=== PATIENT | female | born 1990 | race Caucasian/White ===

== ENCOUNTER 2019-12-18 06:45 | Day surgery (SDC) | payer OTHER ==
[~2019-12-18 06:45] MED LIST: Lactated Ringers 1,000 ML IV SCH
[2019-12-18] MEDS ORDERED: Sugammadex Sodium 200 MG/2 ML VIAL ONE (07:10)
[2019-12-18] MEDS ORDERED: Rocuronium 100 MG/10 ML Syringe ONE (07:13)
[2019-12-18] MEDS ORDERED: Propofol 200 MG/20 ML SDV ONE (07:13)
[2019-12-18] MEDS ORDERED: Ondansetron 4 MG/2 ML SDV ONE (07:13)
[2019-12-18] MEDS ORDERED: Midazolam 1 MG/ML 2 ML SDV ONE (07:13)
[2019-12-18] MEDS ORDERED: Ketorolac 30 MG/ML SDV ONE (07:13)
[2019-12-18] MEDS ORDERED: Lidocaine 2% 5 ML SDV ONE (07:13)
[2019-12-18] MEDS ORDERED: fentaNYL 250 MCG/5 ML SDV ONE (07:13)
[2019-12-18] MEDS ORDERED: Glycopyrrolate 0.2 MG/ML SDV ONE (07:13)
--- NOTE | 2019-12-18 07:35 | PCM.PREANE ---
Preanesthetic Assessment - Anesthesia/Transfusion/Family Hx Anesthesia History: Prior Anesthesia Without Reaction Other Type of Anesthesia Reaction Comment: woke up during wisdon teeth removal Family History of Anesthesia Reaction: No Transfusion History: No Prior Transfusion(s) - Review of Systems General: No Symptoms Pulmonary: No Symptoms Cardiovascular: No Symptoms Gastrointestinal: No Symptoms Neurological: No Symptoms Other: Reports: None - Physical Assessment NPO Status Date: 12/17/19 Vital Signs: Last Vital Signs Temp 208.0 F H 12/18/19 07:00 Pulse 78 12/18/19 07:00 Resp 15 12/18/19 07:00 BP 140/73 12/18/19 07:00 Pulse Ox 100 12/18/19 07:00 Height: 5 ft 8 in Weight: 106.594 kg ASA Class: 2 Dentition: Reports: Normal Dentition Lungs: Clear to Auscultation, Normal Respiratory Effort Cardiovascular: Regular Rate, Regular Rhythm - Lab Values: Laboratory Last Values WBC 7.58 K/uL (4.0-11.0) 12/18/19 07:14 RBC 4.52 M/uL (4.30-5.90) 12/18/19 07:14 Hgb 11.7 g/dL (12.0-16.0) L 12/18/19 07:14 Hct 36.5 % (36.0-46.0) 12/18/19 07:14 MCV 80.8 fL (80.0-98.0) 12/18/19 07:14 MCH 25.9 pg (27.0-32.0) L 12/18/19 07:14 MCHC 32.1 g/dL (31.0-37.0) 12/18/19 07:14 RDW Std Deviation 45.5 fl (28.0-62.0) 12/18/19 07:14 RDW Coeff of Ravi 16 % (11.0-15.0) H 12/18/19 07:14 Plt Count 369 K/uL (150-400) 12/18/19 07:14 MPV 9.90 fL (7.40-12.00) 12/18/19 07:14 Nucleated RBC % 0.0 /100WBC 12/18/19 07:14 Nucleated RBCs # 0 K/uL 12/18/19 07:14 - Allergies Allergies/Adverse Reactions: Allergies Allergy/AdvReac Type Severity Reaction Status Date / Time Penicillins Allergy Swelling Verified 12/12/19 12:24 - Blood Blood Available: No - Anesthesia Plan Pre-Op Medication Ordered: Antacids - Acknowledgements Anesthesia Type Planned: General Anesthesia Pt an Appropriate Candidate for the Planned Anesthesia: Yes Alternatives and Risks of Anesthesia Discussed w Pt/Guardian: Yes Pt/Guardian Understands and Agrees with Anesthesia Plan: Yes Additional Comments: PMH: htn, endometriosis PLAN: get PreAnesthesia Questionnaire Cardiovascular History: Reports: High Cholesterol, Hypertension Gastrointestinal History: Reports: Other (See Below) Other Gastrointestinal History: occasional heartburn Genitourinary History: Reports: UTI, Recurrent Other Genitourinary History: takes daily antibiotic for bladder infections COBBLER UPPER History: Reports: Endometriosis, Fibroids Musculoskeletal History: Reports: Fracture Other Musculoskeletal History: hx of fx fingers left hand Neurological History: Reports: Migraines, Other (See Below) Other Neuro History: less migraines recently- not one for 6 months, hx of motion sickness Endocrine/Metabolic History: Reports: Other (See Below) Other Endocrine/Metabolic History: hx of Goider Dermatologic History: Reports: Other (See Below) Other Dermatologic History: very dry skin - Past Surgical History Head Surgeries/Procedures: Reports: None HEENT Surgical History: Reports: Oral Surgery Other HEENT Surgeries/Procedures: wisdom teeth removed - SUBSTANCE USE Smoking Status *Q: Never Smoker Tobacco Use Within Last Twelve Months: No Recreational Drug Use History: No - HOME MEDS Home Medications: Home Meds Diclofenac Sodium 50 mg PO TID 12/12/19 [History] L.acidoph,Paracasei, B.lactis [Probiotic] 1 cap PO DAILY 12/12/19 [History] Lisinopril/Hydrochlorothiazide [Lisinopril-Hctz 20-25 mg Tab] 1 tab PO QAM 12/12 [History] Nitrofurantoin Macrocrystal [Macrodantin] 50 mg PO DAILY 12/12/19 [History] Phenazopyridine HCl [Azo Urinary Pain Relief] 1 cap PO ASDIRECTED PRN 12/12/19 [ History] atorvaSTATin [Lipitor] 10 mg PO DAILY 12/12/19 [History] - CURRENT (IN HOUSE) MEDS Current Meds: Current Medications Lactated Ringer's (Ringers, Lactated) 1,000 mls @ 125 mls/hr IV ASDIRECTED CHAKA Discontinued Medications Fentanyl (Sublimaze) Confirm Administered Dose 250 mcg .ROUTE .STK-MED ONE Stop: 12/18/19 07:14 Glycopyrrolate (Robinul) Confirm Administered Dose 0.2 mg .ROUTE .STK-MED ONE Stop: 12/18/19 07:14 Ketorolac Tromethamine (Toradol) Confirm Administered Dose 30 mg .ROUTE .STK- MED ONE Stop: 12/18/19 07:14 Lidocaine (Xylocaine-Mpf 2%) Confirm Administered Dose 5 ml .ROUTE .STK-MED ONE Stop: 12/18/19 07:14 Midazolam HCl (Versed 1 Mg/Ml) Confirm Administered Dose 2 mg .ROUTE .STK-MED ONE Stop: 12/18/19 07:14 Ondansetron HCl (Zofran) Confirm Administered Dose 4 mg .ROUTE .STK-MED ONE Stop: 12/18/19 07:14 Propofol (Diprivan 20 Ml) Confirm Administered Dose 200 mg .ROUTE .STK-MED ONE Stop: 12/18/19 07:14 Rocuronium Virgin (Zemuron) Confirm Administered Dose 100 mg .ROUTE .STK-MED ONE Stop: 12/18/19 07:14 Sugammadex Sodium (Bridion) Confirm Administered Dose 200 mg .ROUTE .STK-MED ONE Stop: 12/18/19 07:11
[2019-12-18] MEDS ORDERED: Methylene Blue 50 MG/10 ML Ampule ONE (07:45)
[2019-12-18] MEDS ORDERED: Bupivacaine 0.25% 10 ML SDV ONE (07:45)
[2019-12-18] MEDS ORDERED: Phenylephrine/Normal Saline 100 MCG/ML 10 ML Syringe ONE (08:18)
[2019-12-18] MEDS ORDERED: fentaNYL 100 MCG/2 ML SDV ONE (08:57)
--- NOTE | 2019-12-18 09:33 | PCM.OPNOTE ---
- General Post-Op/Procedure Note Date of Surgery/Procedure: 12/18/19 Operative Procedure(s): Diagnostic hysteroscopy, diagnostic laparoscopy, chromotubation Findings: Enlarged uterus that sounded to 12cm. Dilated fallopian tubes concerning for tubal occlusion. Normal-appearing ovaries. Normal endometrium. No evidence of endometriosis. Suspected intramural leiomyomas and adenomyosis. Pre Op Diagnosis: 29yo G0 with dysmenorrhea and desires Post-Op Diagnosis: 29yo G0 with dysmenorrhea and desires Anesthesia Technique: General ET Tube Primary Surgeon: Jolie Milner Pathology: None Fluid Replacement, Intraop: 1,700 EBL in mLs: 10 Complications: None Condition: Good
--- NOTE | 2019-12-18 11:36 | PCM.POSTAN ---
POST ANESTHESIA ASSESSMENT - MENTAL STATUS Mental Status: Alert, Oriented - VITAL SIGNS Vital Signs: Last Vital Signs Temp 97.7 F 12/18/19 09:55 Pulse 65 12/18/19 09:55 Resp 15 12/18/19 09:55 BP 95/51 L 12/18/19 09:55 Pulse Ox 95 12/18/19 09:55 - RESPIRATORY Respiratory Status: Respiratory Rate WNL, Airway Patent, O2 Saturation Stable - CARDIOVASCULAR CV Status: Pulse Rate WNL, Blood Pressure Stable - GASTROINTESTINAL GI Status: No Symptoms - POST OP HYDRATION Hydration Status: Adequate & Stable
--- NOTE | 2019-12-18 11:36 | PCM48HPAN ---
Post Anesthesia Note - EVALUATION WITHIN 48HRS OF ANESTHETIC Vital Signs in Normal Range: Yes Patient Participated in Evaluation: Yes Respiratory Function Stable: Yes Airway Patent: Yes Cardiovascular Function Stable: Yes Hydration Status Stable: Yes Pain Control Satisfactory: Yes Nausea and Vomiting Control Satisfactory: Yes Mental Status Recovered: Yes Vital Signs: Last Vital Signs Temp 97.7 F 12/18/19 09:55 Pulse 65 12/18/19 09:55 Resp 15 12/18/19 09:55 BP 95/51 L 12/18/19 09:55 Pulse Ox 95 12/18/19 09:55
--- NOTE | 2019-12-18 15:29 | OR ---
SURGEON: Jolie Milner MD DATE OF PROCEDURE: 12/18/2019 PREOPERATIVE DIAGNOSES: 1. A 29-year-old, G0, who desires . 2. Dysmenorrhea. POSTOPERATIVE DIAGNOSES: 1. A 29-year-old, G0, who desires . 2. Dysmenorrhea. PROCEDURES: Diagnostic hysteroscopy, diagnostic laparoscopy, chromotubation. PRIMARY SURGEON: Jolie iMlner MD. ANESTHESIA: General endotracheal tube. PATHOLOGY: None. IV FLUIDS: 1700 mL of LR. ESTIMATED BLOOD LOSS: 10 mL. FINDINGS: Enlarged uterus that sounded to 12 cm. Dilated fallopian tubes concerning for tubal occlusion. Normal-appearing ovaries. Normal endometrium. No evidence of endometriosis. Suspected intramural leiomyomas and adenomyosis. DESCRIPTION OF PROCEDURE: The patient was taken to the operating room where general anesthesia was obtained. She was placed in the dorsal lithotomy position with legs in Yellofins stirrups. She was prepared and draped in normal sterile fashion. A time out procedure was performed. A Graves speculum was placed into the vagina. The anterior lip of the cervix was grasped with an Allis clamp. The uterus was sounded to 12 cm. The cervix was sequentially dilated to a size 9 using Hegar dilators. A MyoSure hysteroscope was primed and with fluid running was inserted into the cervical os under direct visualization and the uterine cavity was explored. The cavity appeared normal with fluffy endometrium consistent with recent bleeding. Both ostia and the cornua were identified. Following this, the hysteroscope was removed from the uterus and a [employer] uterine manipulator was placed into the cervix. The speculum was removed from the vagina. Attention was then turned to the laparoscopy. 0.25% Marcaine without epinephrine was infiltrated in the infraumbilical area. A 5 mm vertical umbilical incision was made through the skin with a scalpel. A 5 mm laparoscope was inserted into the abdomen under direct visualization. The abdominal cavity was insufflated with carbon dioxide gas to a pressure of 15 mmHg. Trendelenburg position was obtained to facilitate moving the bowel out of the pelvis. 0.25% Marcaine without epinephrine was infiltrated into the right lower quadrant. A 5 mm port was placed in the right lower quadrant under direct visualization. Using retraction of the uterus with the manipulator and an atraumatic grasper, the uterus was attempted to be retroverted. The anterior aspect of the uterus and the bladder were inspected, no endometriosis was noted. The uterus was enlarged with irregular contour, suspicious for intramural leiomyomas. The left fallopian tube was identified, which appeared dilated. The left ovary appeared normal. The right fallopian tube was identified, which also appeared dilated. The right ovary appeared normal. The posterior cul-de- sac was inspected and adhesions were noted, however, no endometriosis was identified. At this time, chromotubation was performed. 60 mL of methylene blue mixed in normal saline was injected through the uterine manipulator into the uterus. The laparoscope was used to watch for spillage of the dye through the tubes. No methylene blue was seen spilling from either fallopian tube nor did the tubes appeared discolored. The carbon dioxide gas was turned off and all instruments and ports were removed from the abdomen. The abdominal incisions were closed with 4-0 Monocryl in a subcuticular fashion. The Graves speculum was reinserted into the vagina and the uterine manipulator removed. At this time, it was noted that significant amount of methylene blue had spilled out of the vagina concerning for inadequate chromotubation. The cervix was inspected and no bleeding was noted. The patient was awakened and taken to the recovery room in stable condition. All sponge, lap, and needle counts were correct. The patient will be discharged home with [place] for pain along with doxycycline 100 mg twice daily for 5 days due to possible hydrosalpinx. I will discuss with the patient at her postoperative visit the value of a hysterosalpingogram to confirm tubal occlusion versus patency given the abnormal findings during surgery. SARAH BETH / AHMET /[id number] LUCINA
== END 2019-12-18 11:18 | disposition home or self-care (01) ==
LOC: MW.SDS 06:45
PROVIDERS: ATTEND Obstetrics & Gynecology
DX: Z31.49 Encounter for other procreative investigation and testing (principal); N94.6 Dysmenorrhea, unspecified; N85.2 Hypertrophy of uterus; I10 Essential (primary) hypertension; E78.00 Pure hypercholesterolemia, unspecified; E78.5 Hyperlipidemia, unspecified; G43.909 Migraine, unspecified, not intractable, without status migrainosus; Z88.0 Allergy status to penicillin; Z79.899 Other long term (current) drug therapy
CPT/HCPCS: 36415; 49320; 58350; 58555; 84703; 85027; J1885; J2001; J2250; J2370; J2405; J2704; J3010; J3490; J7120; 00840

== ENCOUNTER 2020-02-04 20:11 | Inpatient (IN) | payer OTHER ==
--- NOTE | 2020-02-04 21:30 | EDM.PDOC ---
<Mini Collado - Last Filed: 02/04/20 22:36> ED HPI GENERAL MEDICAL PROBLEM - General Chief Complaint: Gastrointestinal Problem Stated Complaint: STOMACH PAIN AND HEADACHES Time Seen by Provider: 02/04/20 21:30 Source of Information: Reports: Patient History Limitations: Reports: No Limitations - History of Present Illness INITIAL COMMENTS - FREE TEXT/NARRATIVE: HISTORY AND PHYSICAL: History of present illness: Patient is a 29-year-old female presents to the ED with complaint of vomiting and abdominal pain. She states she started feeling sick around noon today. She states she developed mid abdominal pain around 3pm and started vomiting around 5pm. She states she is hot and sweaty but denies fevers or chills. She reports history of hypertension and surgical history of laparoscopy and hysteroscopy. Review of systems: As per history of present illness and below otherwise all systems reviewed and negative. Past medical history: As per history of present illness and as reviewed below otherwise noncontributory. Surgical history: As per history of present illness and as reviewed below otherwise noncontributory. Social history: No reported history of drug or alcohol abuse. Family history: As per history of present illness and as reviewed below otherwise noncontributory. Physical exam: General: Patient sitting comfortably in no acute distress and nontoxic appearing HEENT: Atraumatic, normocephalic, pupils reactive, negative for conjunctival pallor or scleral icterus, mucous membranes moist, throat clear, neck supple, nontender, trachea midline. No meningeal signs. Lungs: Clear to auscultation, breath sounds equal bilaterally, chest nontender. Heart: S1S2, regular, negative for clicks, rubs, or overt murmur. Abdomen: Moderate diffuse abdominal tenderness to palpation, no point tenderness. Soft, nondistended. Negative for masses or hepatosplenomegaly. Negative for costovertebral tenderness. No rigidity, rebound, guarding. Pelvis: Stable nontender. Genitourinary: Deferred. Rectal: Deferred. Extremities: Atraumatic, negative for cords or calf pain. Neurovascular unremarkable. Neuro: Awake, alert, oriented. Cranial nerves II through XII unremarkable. Cerebellum unremarkable. Motor and sensory unremarkable throughout. Exam nonfocal. Notes: Diagnostics: CBC, CMP, lipase, UA, urine hcg, CT Abdomen/pelvis Therapeutics: 4mg Zofran IV 1L NS IV Prescriptions: Impression: [] Plan: [] Definitive disposition and diagnosis as appropriate pending reevaluation and review of above. - Related Data Allergies Allergy/AdvReac Type Severity Reaction Status Date / Time Penicillins Allergy Swelling Verified 02/04/20 20:57 Home Meds: Home Meds Diclofenac Sodium 50 mg PO TID 12/12/19 [History] L.acidoph,Paracasei, B.lactis [Probiotic] 1 cap PO DAILY 12/12/19 [History] Lisinopril/Hydrochlorothiazide [Lisinopril-Hctz 20-25 mg Tab] 1 tab PO QAM 12/12 [History] Nitrofurantoin Macrocrystal [Macrodantin] 50 mg PO DAILY 12/12/19 [History] Phenazopyridine HCl [Azo Urinary Pain Relief] 1 cap PO ASDIRECTED PRN 12/12/19 [ History] atorvaSTATin [Lipitor] 10 mg PO DAILY 12/12/19 [History] Doxycycline [Vibramycin] 100 mg PO BID 5 Days #10 cap 12/18/19 [Rx] Hydrocodone/Acetaminophen [[place] 5-325 Tablet] 1 each PO Q6H PRN #15 tablet 03/03 [Rx] Past Medical History Cardiovascular History: Reports: High Cholesterol, Hypertension Gastrointestinal History: Reports: Other (See Below) Other Gastrointestinal History: occasional heartburn Genitourinary History: Reports: UTI, Recurrent Other Genitourinary History: takes daily antibiotic for bladder infections WATER TRAINER History: Reports: Endometriosis, Fibroids Musculoskeletal History: Reports: Fracture Other Musculoskeletal History: hx of fx fingers left hand Neurological History: Reports: Migraines, Other (See Below) Other Neuro History: less migraines recently- not one for 6 months, hx of motion sickness Endocrine/Metabolic History: Reports: Other (See Below) Other Endocrine/Metabolic History: hx of Goider Dermatologic History: Reports: Other (See Below) Other Dermatologic History: very dry skin - Infectious Disease History Infectious Disease History: Reports: None - Past Surgical History Head Surgeries/Procedures: Reports: None HEENT Surgical History: Reports: Oral Surgery Other HEENT Surgeries/Procedures: wisdom teeth removed Social & Family History - Family History Family Medical History: Noncontributory - Tobacco Use Smoking Status *Q: Never Smoker - Caffeine Use Caffeine Use: Reports: None - Recreational Drug Use Recreational Drug Use: No ED ROS GENERAL - Review of Systems Review Of Systems: Comprehensive ROS is negative, except as noted in HPI. ED EXAM, GI/ABD - Physical Exam Exam: See Below (see dictation) Course - Vital Signs Last Recorded V/S: Last Vital Signs Temp 96.7 F L 02/05/20 00:20 Pulse 107 H 02/05/20 00:20 Resp 18 02/05/20 00:20 BP 118/86 02/05/20 00:20 Pulse Ox 100 02/05/20 00:20 - Orders/Labs/Meds Orders: Active Orders 24 hr Category Date Time Status Chest 1V Frontal [CR] Stat Exams 02/05/20 00:02 Ordered CULTURE BLOOD [BC] Stat Lab 02/04/20 23:59 Ordered CULTURE BLOOD [BC] Stat Lab 02/04/20 23:59 Ordered CULTURE URINE [RM] Stat Lab 02/04/20 22:20 Received Sodium Chloride 0.9% [Normal Saline] 1,000 ml Med 02/04/20 23:58 Active IV .Bolus metroNIDAZOLE/Normal Saline [Flagyl 500 MG in NS 100 ML Med 02/04/20 23:50 Active ] 500 mg Premix Bag 1 bag IV ONETIME Blood Culture x2 Reflex Set [OM.PC] Stat Oth 02/04/20 23:59 Ordered Medication Orders Metronidazole 500 mg/ Premix 100 mls @ 100 mls/hr IV ONETIME ONE Stop: 02/05/20 00:49 Last Admin: 02/05/20 00:09 Dose: 100 mls/hr Sodium Chloride (Normal Saline) 1,000 mls @ 1,000 mls/hr IV .Bolus ONE Stop: 02/05/20 00:57 Labs: Laboratory Tests 02/04/20 02/04/20 02/04/20 Range/Units 20:57 20:57 20:57 WBC 37.24 H (4.0-11.0) K/uL RBC 5.48 (4.30-5.90) M/uL Hgb 14.3 (12.0-16.0) g/dL Hct 44.5 (36.0-46.0) % MCV 81.2 (80.0-98.0) fL MCH 26.1 L (27.0-32.0) pg MCHC 32.1 (31.0-37.0) g/dL RDW Std Deviation 41.8 (28.0-62.0) fl RDW Coeff of Ravi 14 (11.0-15.0) % Plt Count 638 H (150-400) K/uL MPV 10.80 (7.40-12.00) fL Neut % (Auto) 85.8 H (48.0-80.0) % Lymph % (Auto) 9.5 L (16.0-40.0) % Stewart % (Auto) 4.4 (0.0-15.0) % Eos % (Auto) 0.2 (0.0-7.0) % Baso % (Auto) 0.1 (0.0-1.5) % Neut # (Auto) 32.0 H (1.4-5.7) K/uL Lymph # (Auto) 3.5 H (0.6-2.4) K/uL Stewart # (Auto) 1.7 H (0.0-0.8) K/uL Eos # (Auto) 0.1 (0.0-0.7) K/uL Baso # (Auto) 0.0 (0.0-0.1) K/uL Nucleated RBC % 0.0 /100WBC Nucleated RBCs # 0 K/uL Lactate 3.0 H* (0.20-2.00) mmol/L Sodium 139 (136-145) mmol/L Potassium 3.6 (3.5-5.1) mmol/L Chloride 99 (98-107) mmol/L Carbon Dioxide 21.3 (21.0-32.0) mmol/L BUN 15 (7.0-18.0) mg/dL Creatinine 1.2 H (0.6-1.0) mg/dL Est Cr Clr Drug Dosing 66.06 mL/min Estimated GFR (MDRD) 52.4 ml/min Glucose 165 H (74-106) mg/dL Calcium 9.9 (8.5-10.1) mg/dL Total Bilirubin 0.9 (0.2-1.0) mg/dL AST 13 L (15-37) IU/L ALT 21 (14-63) IU/L Alkaline Phosphatase 75 (46-116) U/L Total Protein 8.2 (6.4-8.2) g/dL Albumin 4.0 (3.4-5.0) g/dL Globulin 4.2 H (2.6-4.0) g/dL Albumin/Globulin Ratio 1.0 (0.9-1.6) Lipase 101 (73-393) U/L Urine Color Urine Appearance Urine pH (5.0-8.0) Ur Specific [place] (1.001-1.035) Urine Protein (NEGATIVE) mg/dL Urine Glucose (UA) (NEGATIVE) mg/dL Urine Ketones (NEGATIVE) mg/dL Urine Occult Blood (NEGATIVE) Urine Nitrite (NEGATIVE) Urine Bilirubin (NEGATIVE) Urine Ictotest Urine Urobilinogen (<2.0) EU/dL Ur Leukocyte Esterase (NEGATIVE) Urine RBC (0-2/HPF) Urine WBC (0-5/HPF) Ur Epithelial Cells (NONE-FEW) Amorphous Sediment (NEGATIVE) Urine Bacteria (NEGATIVE) Fine Granular Casts (NEGATIVE) Urine HCG, Qual (NEGATIVE) 02/04/20 02/04/20 Range/Units 22:20 22:20 WBC (4.0-11.0) K/uL RBC (4.30-5.90) M/uL Hgb (12.0-16.0) g/dL Hct (36.0-46.0) % MCV (80.0-98.0) fL MCH (27.0-32.0) pg MCHC (31.0-37.0) g/dL RDW Std Deviation (28.0-62.0) fl RDW Coeff of Ravi (11.0-15.0) % Plt Count (150-400) K/uL MPV (7.40-12.00) fL Neut % (Auto) (48.0-80.0) % Lymph % (Auto) (16.0-40.0) % Stewart % (Auto) (0.0-15.0) % Eos % (Auto) (0.0-7.0) % Baso % (Auto) (0.0-1.5) % Neut # (Auto) (1.4-5.7) K/uL Lymph # (Auto) (0.6-2.4) K/uL Stewart # (Auto) (0.0-0.8) K/uL Eos # (Auto) (0.0-0.7) K/uL Baso # (Auto) (0.0-0.1) K/uL Nucleated RBC % /100WBC Nucleated RBCs # K/uL Lactate (0.20-2.00) mmol/L Sodium (136-145) mmol/L Potassium (3.5-5.1) mmol/L Chloride (98-107) mmol/L Carbon Dioxide (21.0-32.0) mmol/L BUN (7.0-18.0) mg/dL Creatinine (0.6-1.0) mg/dL Est Cr Clr Drug Dosing mL/min Estimated GFR (MDRD) ml/min Glucose (74-106) mg/dL Calcium (8.5-10.1) mg/dL Total Bilirubin (0.2-1.0) mg/dL AST (15-37) IU/L ALT (14-63) IU/L Alkaline Phosphatase (46-116) U/L Total Protein (6.4-8.2) g/dL Albumin (3.4-5.0) g/dL Globulin (2.6-4.0) g/dL Albumin/Globulin Ratio (0.9-1.6) Lipase (73-393) U/L Urine Color YELLOW Urine Appearance CLOUDY Urine pH 5.5 (5.0-8.0) Ur Specific [place] >= 1.030 (1.001-1.035) Urine Protein 30 H (NEGATIVE) mg/dL Urine Glucose (UA) NEGATIVE (NEGATIVE) mg/dL Urine Ketones 40 H (NEGATIVE) mg/dL Urine Occult Blood LARGE H (NEGATIVE) Urine Nitrite NEGATIVE (NEGATIVE) Urine Bilirubin MODERATE H (NEGATIVE) Urine Ictotest NEGATIVE Urine Urobilinogen 0.2 (<2.0) EU/dL Ur Leukocyte Esterase NEGATIVE (NEGATIVE) Urine RBC 6-9 (0-2/HPF) Urine WBC 0-2 (0-5/HPF) Ur Epithelial Cells MODERATE (NONE-FEW) Amorphous Sediment LIGHT (NEGATIVE) Urine Bacteria 3+ H (NEGATIVE) Fine Granular Casts 13-15 (NEGATIVE) Urine HCG, Qual NEGATIVE (NEGATIVE) Meds: Medications Generic Name Dose Route Start Last Admin Trade Name Freq PRN Reason Stop Dose Admin Metronidazole 500 mg/ Premix 100 mls @ 100 mls/hr 02/04/20 23:50 02/05/20 00: 09 IV 02/05/20 00:49 100 mls/hr ONETIME ONE Administration Sodium Chloride 1,000 mls @ 1,000 mls/hr 02/04/20 23:58 Normal Saline IV 02/05/20 00:57 .Bolus ONE Discontinued Medications Generic Name Dose Route Start Last Admin Trade Name Mayankq PRN Reason Stop Dose Admin Sodium Chloride 1,000 mls @ 999 mls/hr 02/04/20 21:33 02/04/20 21:46 Normal Saline IV 02/04/20 22:33 999 mls/hr STAT ONE Administration Vancomycin HCl 1.5 gm/ Premix 300 mls @ 300 mls/hr 02/04/20 23:51 02/05/20 00 :18 IV 02/04/20 23:52 300 mls/hr ONETIME ONE Administration Iopamidol 100 ml 02/04/20 22:58 02/04/20 23:07 Isovue Multipack-370 (76%) IVPUSH 02/04/20 22:59 100 ml ONETIME STA Administration Ondansetron HCl 4 mg 02/04/20 21:33 02/04/20 21:46 Zofran IVPUSH 02/04/20 21:34 4 mg ONETIME ONE Administration Ondansetron HCl 4 mg 02/04/20 23:58 Zofran IVPUSH 02/04/20 23:59 ONETIME ONE Departure - Departure Disposition: Admitted As Inpatient 64 Clinical Impression: Enteritis - Discharge Information Referrals: PCP,None [Primary Care Provider] - Forms: ED Department Discharge Sepsis Event Note - Evaluation Sepsis Screening Result: No Definite Risk - Focused Exam Vital Signs: Vital Signs Temp Pulse Resp BP Pulse Ox 02/05/20 00:20 96.7 F L 107 H 18 118/86 100 02/04/20 20:57 97.5 F 17 Date Exam was Performed: 02/04/20 Time Exam was Performed: 22:36 - My Orders Last 24 Hours: My Active Orders 02/04/20 22:20 CULTURE URINE [RM] Stat 02/04/20 23:50 metroNIDAZOLE/Normal Saline [Flagyl 500 MG in NS 100 ML] 500 mg Premix Bag 1 bag IV ONETIME 02/04/20 23:58 Sodium Chloride 0.9% [Normal Saline] 1,000 ml IV .Bolus 02/04/20 23:59 CULTURE BLOOD [BC] Stat CULTURE BLOOD [BC] Stat Blood Culture x2 Reflex Set [OM.PC] Stat 02/05/20 00:02 Chest 1V Frontal [CR] Stat - Assessment/Plan Last 24 Hours: My Active Orders 02/04/20 22:20 CULTURE URINE [RM] Stat 02/04/20 23:50 metroNIDAZOLE/Normal Saline [Flagyl 500 MG in NS 100 ML] 500 mg Premix Bag 1 bag IV ONETIME 02/04/20 23:58 Sodium Chloride 0.9% [Normal Saline] 1,000 ml IV .Bolus 02/04/20 23:59 CULTURE BLOOD [BC] Stat CULTURE BLOOD [BC] Stat Blood Culture x2 Reflex Set [OM.PC] Stat 02/05/20 00:02 Chest 1V Frontal [CR] Stat <Say Quevedo - Last Filed: 02/05/20 00:27> ED HPI GENERAL MEDICAL PROBLEM - History of Present Illness INITIAL COMMENTS - FREE TEXT/NARRATIVE: Agree with the work-up prior to taking it with the patient. Patient had a CT scan pending which shows enteritis. Patient's urine shows an infection going on also. Patient has a white count of 37,000. Patient had a lactate that was elevated to 3. Septic work-up was ensued. Patient had blood cultures and then antibiotics were given Flagyl 500 IV: Also Levaquin 500 mg. Patient is allergic to penicillin. The hospitalist was called Dr. Soriano patient will be admitted to the floor. Blood pressure is 118/80 with a heart rate of 76. Departure - Departure Time of Disposition: 00:26 Condition: Good Sepsis Event Note - Focused Exam Date Exam was Performed: 02/05/20 Time Exam was Performed: 00:22
[2020-02-04] MEDS ORDERED: Sodium Chloride 0.9% 1,000 ML IV ONE ×2 (21:33→23:58)
[2020-02-04] MEDS ORDERED: Ondansetron 4 MG/2 ML SDV IVPUSH ONE ×2 (21:33→23:58)
[2020-02-04 22:30] LABS: CARBON DIOXIDE,CO2 21.3 mmol/L (21.0-32.0); POTASSIUM,K 3.6 mmol/L (3.5-5.1)
[2020-02-04] MEDS ORDERED: Iopamidol 755 MG/ML 200 ML Multipack Bottle IVPUSH STA (22:58)
--- NOTE | 2020-02-04 23:40 | CT ---
INDICATION: Abdominal pain. Elevated white count. Diarrhea TECHNIQUE: CT abdomen and pelvis acquired with IV contrast. 100 mL of Isovue 370 administered. COMPARISON: None available FINDINGS: Lower chest: A small hiatal hernia. Liver: Unremarkable. Spleen: Unremarkable. Pancreas: Unremarkable. Gallbladder and bile ducts: Unremarkable. Adrenal glands: Unremarkable. Kidneys: Unremarkable. GI tract: Wall thickening and mural edema of multiple small bowel segments, with associated mesenteric edema, consistent with enteritis. No evidence of appendicitis. Mild prominence of the ascending colon wall is at least partially related to under distension. Intramural fat attenuation in the right colon can be seen as sequela of chronic inflammation. Vascular structures: Unremarkable. Lymph nodes: No abnormally enlarged lymph nodes. Subcentimeter retroperitoneal and mesenteric lymph nodes, nonspecific. Miscellaneous: Small to moderate abdominal and pelvic free fluid. No free air. Pelvic Organs: An enlarged, globular and diffusely heterogeneous uterine body and fundus which could represent a large myoma or adenomyosis. A 2.5 x 2.4 cm enhancing posterior uterine lesion, containing a small central low attenuation, compatible with a myoma which could be partially degenerated. Prominence of the endocervical canal with a possible 1.4 cm nabothian cyst. A contracted bladder. Bones: Unremarkable for age. IMPRESSION: Thick-walled, edematous small bowel segments, consistent with enteritis. Correlate for infectious, inflammatory or ischemic etiologies. Mild ascending colon wall prominence is at least partially related to under distention, however correlate clinically for mild regional colitis. Small to moderate free fluid. An enlarged, globular, heterogeneous uterine body which could represent a large leiomyoma or adenomyosis. A smaller posterior uterine myoma. Follow-up with nonemergent sonographic evaluation. Dictated by Mendoza Alicia MD @ 02/04/2020 11:38:11 PM Please note that all CT scans at this facility use dose modulation, iterative reconstruction, and/or weight-based dosing when appropriate to reduce radiation dose to as low as reasonably achievable. Dictated by: Mendoza Alicia MD @ 02/04/2020 23:38:20 (Electronically Signed)
[2020-02-04] MEDS ORDERED: metroNIDAZOLE/Normal Saline 500 MG in Premix Bag 1 BAG IV ONE (23:50)
--- NOTE | 2020-02-05 00:38 | CR ---
INDICATION: Shortness of breath TECHNIQUE: Chest radiograph 1 view COMPARISON: None FINDINGS: Mediastinum: The mediastinum is normal in appearance. The heart silhouette is normal in size and morphology. Lung: Both lungs are unremarkable in appearance. No sign of pleural effusion seen. No pneumothorax is identified. Bone and Soft tissue: Unremarkable for age. IMPRESSION: 1. No acute cardiopulmonary disease is seen. Dictated by: Charlie Neff MD @ 02/05/2020 00:37:29 (Electronically Signed)
[2020-02-05] MEDS ORDERED: Sodium Chloride 0.9% 1,000 ML IV ONE (00:56)
[2020-02-05] MEDS ORDERED: Ondansetron 4 MG/2 ML SDV IVPUSH PRN (02:41)
[2020-02-05] MEDS: Sodium Chloride 0.9% 1,000 ML IV SCH ×2 (03:02→13:31)
[2020-02-05] MEDS: Ciprofloxacin in D5W 400 MG in Premix Bag 1 BAG IV SCH ×4 (04:55→17:20)
[2020-02-05 06:21] LABS: BLOOD UREA NITROGEN,BUN 13 mg/dL (7.0-18.0); CARBON DIOXIDE,CO2 22.7 mmol/L (21.0-32.0); CHLORIDE,CL 106 mmol/L (98-107); GLUCOSE RANDOM 155 mg/dL (74-106); POTASSIUM,K 4.1 mmol/L (3.5-5.1); SODIUM,NA 138 mmol/L (136-145)
[2020-02-05] MEDS: metroNIDAZOLE/Normal Saline 500 MG in Premix Bag 1 BAG IV SCH ×2 (08:33→15:49)
[2020-02-05] MEDS: Pantoprazole 40 MG in Sodium Chloride 0.9% 10 ML IV SCH (08:33)
--- NOTE | 2020-02-05 09:04 | PCM.HP.2 ---
H&P History of Present Illness - General Date of Service: 02/05/20 Admit Problem/Dx: Admission Diagnosis/Problem Admission Diagnosis/Problem Enteritis Source of Information: Patient History Limitations: Reports: No Limitations - History of Present Illness Initial Comments - Free Text/Narative: 29-year-old female presented with nausea, vomiting and epigastric abdominal pain for 1 day. She has a PMH of HTN, hyperlipidemia, recurrent UTI and adenomyosis. The pain is described as being dull in nature and started abruptly yesterday afternoon. Patient is also on her period so she was not sure if she was having menstrual cramps but as the pain worsened she went to the ER. She has also had diarrhea since yesterday. She denies any fevers, chills, SOB, chest pain, blood in stool or blood in her urine. In the ER, WBC 37,000, lactate 3.[address] abdomen showed enteritis. Patient given 3 L IV NS bolus, blood cultures obtained and given a dose of IV vancomycin and flagyl. Patient admitted for further evaluation and treatment. Abdomen Pain Score (Numeric/FACES): 6 - Related Data Allergies/Adverse Reactions: Allergies Allergy/AdvReac Type Severity Reaction Status Date / Time Penicillins Allergy Swelling Verified 02/05/20 03:03 Home Medications: Home Meds Diclofenac Sodium 50 mg PO TID PRN 12/12/19 [History] L.acidoph,Paracasei, B.lactis [Probiotic] 1 cap PO DAILY 12/12/19 [History] Lisinopril/Hydrochlorothiazide [Lisinopril-Hctz 20-25 mg Tab] 1 tab PO DAILY [History] Nitrofurantoin Macrocrystal [Macrodantin] 50 mg PO DAILY 12/12/19 [History] atorvaSTATin [Lipitor] 10 mg PO BEDTIME 12/12/19 [History] Hydrocodone/Acetaminophen [Man 5-325 Tablet] 1 each PO Q6H PRN #15 tablet 03/03 [Rx] medroxyPROGESTERone [Provera] 10 mg PO DAILY 02/05/20 [History] Past Medical History Cardiovascular History: Reports: High Cholesterol, Hypertension Gastrointestinal History: Reports: Other (See Below) Other Gastrointestinal History: occasional heartburn Genitourinary History: Reports: UTI, Recurrent Other Genitourinary History: takes daily antibiotic for bladder infections OFFICE COORDINATOR History: Reports: Endometriosis, Fibroids Musculoskeletal History: Reports: Fracture Other Musculoskeletal History: hx of fx fingers left hand Neurological History: Reports: Migraines, Other (See Below) Other Neuro History: less migraines recently- not one for 6 months, hx of motion sickness Endocrine/Metabolic History: Reports: Other (See Below) Other Endocrine/Metabolic History: hx of Goider Dermatologic History: Reports: Other (See Below) Other Dermatologic History: very dry skin - Infectious Disease History Infectious Disease History: Reports: None - Past Surgical History Head Surgeries/Procedures: Reports: None HEENT Surgical History: Reports: Oral Surgery Other HEENT Surgeries/Procedures: wisdom teeth removed Social & Family History - Family History Family Medical History: Noncontributory - Tobacco Use Smoking Status *Q: Never Smoker - Caffeine Use Caffeine Use: Reports: None - Recreational Drug Use Recreational Drug Use: No H&P Review of Systems - Review of Systems: Review Of Systems: Comprehensive ROS is negative, except as noted in HPI. Exam - Exam Exam: See Below - Vital Signs Vital Signs: Last Vital Signs Temp 98.6 F 02/05/20 04:49 Pulse 85 02/05/20 04:49 Resp 16 02/05/20 04:49 BP 114/66 02/05/20 04:49 Pulse Ox 94 L 02/05/20 04:49 Weight: 232 lb - Exam General: Alert, Oriented, Cooperative, Other (NAD) HEENT: Conjunctiva Clear, EOMI, Hearing Intact, Pupils Equal, Pupils Reactive Neck: Supple, Trachea Midline Lungs: Clear to Auscultation, Normal Respiratory Effort Cardiovascular: Regular Rate, Regular Rhythm GI/Abdominal Exam: Normal Bowel Sounds, Soft, No Distention, Other (mild epigastric ttp) Extremities: Normal Inspection, No Pedal Edema Peripheral Pulses: 2+: Radial (L), Radial (R) Skin: Warm, Dry, Intact Neurological: Cranial Nerves Intact, Strength Equal Bilateral, Normal Tone, Sensation Intact Neuro Extensive - Mental Status: Alert, Oriented x3, Normal Mood/Affect Psychiatric: Alert, Normal Affect, Normal Mood - Patient Data Lab Results Last 24 hrs: Laboratory Results - last 24 hr 02/04/20 02/04/20 02/04/20 Range/Units 20:57 20:57 20:57 WBC 37.24 H (4.0-11.0) K/uL RBC 5.48 (4.30-5.90) M/uL Hgb 14.3 (12.0-16.0) g/dL Hct 44.5 (36.0-46.0) % MCV 81.2 (80.0-98.0) fL MCH 26.1 L (27.0-32.0) pg MCHC 32.1 (31.0-37.0) g/dL RDW Std Deviation 41.8 (28.0-62.0) fl RDW Coeff of Ravi 14 (11.0-15.0) % Plt Count 638 H (150-400) K/uL MPV 10.80 (7.40-12.00) fL Neut % (Auto) 85.8 H (48.0-80.0) % Lymph % (Auto) 9.5 L (16.0-40.0) % [place] % (Auto) 4.4 (0.0-15.0) % Eos % (Auto) 0.2 (0.0-7.0) % Baso % (Auto) 0.1 (0.0-1.5) % Neut # (Auto) 32.0 H (1.4-5.7) K/uL Lymph # (Auto) 3.5 H (0.6-2.4) K/uL [place] # (Auto) 1.7 H (0.0-0.8) K/uL Eos # (Auto) 0.1 (0.0-0.7) K/uL Baso # (Auto) 0.0 (0.0-0.1) K/uL Nucleated RBC % 0.0 /100WBC Nucleated RBCs # 0 K/uL Lactate 3.0 H* (0.20-2.00) mmol/L Sodium 139 (136-145) mmol/L Potassium 3.6 (3.5-5.1) mmol/L Chloride 99 (98-107) mmol/L Carbon Dioxide 21.3 (21.0-32.0) mmol/L BUN 15 (7.0-18.0) mg/dL Creatinine 1.2 H (0.6-1.0) mg/dL Est Cr Clr Drug Dosing 66.06 mL/min Estimated GFR (MDRD) 52.4 ml/min Glucose 165 H (74-106) mg/dL Calcium 9.9 (8.5-10.1) mg/dL Phosphorus (2.6-4.7) mg/dL Magnesium (1.8-2.4) mg/dL Total Bilirubin 0.9 (0.2-1.0) mg/dL AST 13 L (15-37) IU/L ALT 21 (14-63) IU/L Alkaline Phosphatase 75 (46-116) U/L Total Protein 8.2 (6.4-8.2) g/dL Albumin 4.0 (3.4-5.0) g/dL Globulin 4.2 H (2.6-4.0) g/dL Albumin/Globulin Ratio 1.0 (0.9-1.6) Lipase 101 (73-393) U/L Urine Color Urine Appearance Urine pH (5.0-8.0) Ur Specific [place] (1.001-1.035) Urine Protein (NEGATIVE) mg/dL Urine Glucose (UA) (NEGATIVE) mg/dL Urine Ketones (NEGATIVE) mg/dL Urine Occult Blood (NEGATIVE) Urine Nitrite (NEGATIVE) Urine Bilirubin (NEGATIVE) Urine Ictotest Urine Urobilinogen (<2.0) EU/dL Ur Leukocyte Esterase (NEGATIVE) Urine RBC (0-2/HPF) Urine WBC (0-5/HPF) Ur Epithelial Cells (NONE-FEW) Amorphous Sediment (NEGATIVE) Urine Bacteria (NEGATIVE) Fine Granular Casts (NEGATIVE) Urine HCG, Qual (NEGATIVE) 02/04/20 02/04/20 02/05/20 Range/Units 22:20 22:20 02:45 WBC (4.0-11.0) K/uL RBC (4.30-5.90) M/uL Hgb (12.0-16.0) g/dL Hct (36.0-46.0) % MCV (80.0-98.0) fL MCH (27.0-32.0) pg MCHC (31.0-37.0) g/dL RDW Std Deviation (28.0-62.0) fl RDW Coeff of Ravi (11.0-15.0) % Plt Count (150-400) K/uL MPV (7.40-12.00) fL Neut % (Auto) (48.0-80.0) % Lymph % (Auto) (16.0-40.0) % [place] % (Auto) (0.0-15.0) % Eos % (Auto) (0.0-7.0) % Baso % (Auto) (0.0-1.5) % Neut # (Auto) (1.4-5.7) K/uL Lymph # (Auto) (0.6-2.4) K/uL [place] # (Auto) (0.0-0.8) K/uL Eos # (Auto) (0.0-0.7) K/uL Baso # (Auto) (0.0-0.1) K/uL Nucleated RBC % /100WBC Nucleated RBCs # K/uL Lactate 2.6 H* (0.20-2.00) mmol/L Sodium (136-145) mmol/L Potassium (3.5-5.1) mmol/L Chloride (98-107) mmol/L Carbon Dioxide (21.0-32.0) mmol/L BUN (7.0-18.0) mg/dL Creatinine (0.6-1.0) mg/dL Est Cr Clr Drug Dosing mL/min Estimated GFR (MDRD) ml/min Glucose (74-106) mg/dL Calcium (8.5-10.1) mg/dL Phosphorus (2.6-4.7) mg/dL Magnesium (1.8-2.4) mg/dL Total Bilirubin (0.2-1.0) mg/dL AST (15-37) IU/L ALT (14-63) IU/L Alkaline Phosphatase (46-116) U/L Total Protein (6.4-8.2) g/dL Albumin (3.4-5.0) g/dL Globulin (2.6-4.0) g/dL Albumin/Globulin Ratio (0.9-1.6) Lipase (73-393) U/L Urine Color YELLOW Urine Appearance CLOUDY Urine pH 5.5 (5.0-8.0) Ur Specific [place] >= 1.030 (1.001-1.035) Urine Protein 30 H (NEGATIVE) mg/dL Urine Glucose (UA) NEGATIVE (NEGATIVE) mg/dL Urine Ketones 40 H (NEGATIVE) mg/dL Urine Occult Blood LARGE H (NEGATIVE) Urine Nitrite NEGATIVE (NEGATIVE) Urine Bilirubin MODERATE H (NEGATIVE) Urine Ictotest NEGATIVE Urine Urobilinogen 0.2 (<2.0) EU/dL Ur Leukocyte Esterase NEGATIVE (NEGATIVE) Urine RBC 6-9 (0-2/HPF) Urine WBC 0-2 (0-5/HPF) Ur Epithelial Cells MODERATE (NONE-FEW) Amorphous Sediment LIGHT (NEGATIVE) Urine Bacteria 3+ H (NEGATIVE) Fine Granular Casts 13-15 (NEGATIVE) Urine HCG, Qual NEGATIVE (NEGATIVE) 02/05/20 02/05/20 02/05/20 Range/Units 05:33 05:33 05:33 WBC 20.83 H (4.0-11.0) K/uL RBC 4.52 (4.30-5.90) M/uL Hgb 11.5 L (12.0-16.0) g/dL Hct 36.5 (36.0-46.0) % MCV 80.8 (80.0-98.0) fL MCH 25.4 L (27.0-32.0) pg MCHC 31.5 (31.0-37.0) g/dL RDW Std Deviation 41.8 (28.0-62.0) fl RDW Coeff of Ravi 14 (11.0-15.0) % Plt Count 487 H (150-400) K/uL MPV 10.30 (7.40-12.00) fL Neut % (Auto) 93.2 H (48.0-80.0) % Lymph % (Auto) 5.2 L (16.0-40.0) % [place] % (Auto) 1.6 (0.0-15.0) % Eos % (Auto) 0.0 (0.0-7.0) % Baso % (Auto) 0.0 (0.0-1.5) % Neut # (Auto) 19.4 H (1.4-5.7) K/uL Lymph # (Auto) 1.1 (0.6-2.4) K/uL [place] # (Auto) 0.3 (0.0-0.8) K/uL Eos # (Auto) 0.0 (0.0-0.7) K/uL Baso # (Auto) 0.0 (0.0-0.1) K/uL Nucleated RBC % 0.0 /100WBC Nucleated RBCs # 0 K/uL Lactate (0.20-2.00) mmol/L Sodium 138 (136-145) mmol/L Potassium 4.1 (3.5-5.1) mmol/L Chloride 106 (98-107) mmol/L Carbon Dioxide 22.7 (21.0-32.0) mmol/L BUN 13 (7.0-18.0) mg/dL Creatinine 0.9 (0.6-1.0) mg/dL Est Cr Clr Drug Dosing 88.07 mL/min Estimated GFR (MDRD) > 60.0 ml/min Glucose 155 H (74-106) mg/dL Calcium 7.9 L (8.5-10.1) mg/dL Phosphorus 3.3 (2.6-4.7) mg/dL Magnesium 1.8 (1.8-2.4) mg/dL Total Bilirubin (0.2-1.0) mg/dL AST (15-37) IU/L ALT (14-63) IU/L Alkaline Phosphatase (46-116) U/L Total Protein (6.4-8.2) g/dL Albumin 3.0 L (3.4-5.0) g/dL Globulin (2.6-4.0) g/dL Albumin/Globulin Ratio (0.9-1.6) Lipase (73-393) U/L Urine Color Urine Appearance Urine pH (5.0-8.0) Ur Specific [place] (1.001-1.035) Urine Protein (NEGATIVE) mg/dL Urine Glucose (UA) (NEGATIVE) mg/dL Urine Ketones (NEGATIVE) mg/dL Urine Occult Blood (NEGATIVE) Urine Nitrite (NEGATIVE) Urine Bilirubin (NEGATIVE) Urine Ictotest Urine Urobilinogen (<2.0) EU/dL Ur Leukocyte Esterase (NEGATIVE) Urine RBC (0-2/HPF) Urine WBC (0-5/HPF) Ur Epithelial Cells (NONE-FEW) Amorphous Sediment (NEGATIVE) Urine Bacteria (NEGATIVE) Fine Granular Casts (NEGATIVE) Urine HCG, Qual (NEGATIVE) 02/05/20 Range/Units 08:40 WBC (4.0-11.0) K/uL RBC (4.30-5.90) M/uL Hgb (12.0-16.0) g/dL Hct (36.0-46.0) % MCV (80.0-98.0) fL MCH (27.0-32.0) pg MCHC (31.0-37.0) g/dL RDW Std Deviation (28.0-62.0) fl RDW Coeff of Ravi (11.0-15.0) % Plt Count (150-400) K/uL MPV (7.40-12.00) fL Neut % (Auto) (48.0-80.0) % Lymph % (Auto) (16.0-40.0) % [place] % (Auto) (0.0-15.0) % Eos % (Auto) (0.0-7.0) % Baso % (Auto) (0.0-1.5) % Neut # (Auto) (1.4-5.7) K/uL Lymph # (Auto) (0.6-2.4) K/uL [place] # (Auto) (0.0-0.8) K/uL Eos # (Auto) (0.0-0.7) K/uL Baso # (Auto) (0.0-0.1) K/uL Nucleated RBC % /100WBC Nucleated RBCs # K/uL Lactate 1.2 (0.20-2.00) mmol/L Sodium (136-145) mmol/L Potassium (3.5-5.1) mmol/L Chloride (98-107) mmol/L Carbon Dioxide (21.0-32.0) mmol/L BUN (7.0-18.0) mg/dL Creatinine (0.6-1.0) mg/dL Est Cr Clr Drug Dosing mL/min Estimated GFR (MDRD) ml/min Glucose (74-106) mg/dL Calcium (8.5-10.1) mg/dL Phosphorus (2.6-4.7) mg/dL Magnesium (1.8-2.4) mg/dL Total Bilirubin (0.2-1.0) mg/dL AST (15-37) IU/L ALT (14-63) IU/L Alkaline Phosphatase (46-116) U/L Total Protein (6.4-8.2) g/dL Albumin (3.4-5.0) g/dL Globulin (2.6-4.0) g/dL Albumin/Globulin Ratio (0.9-1.6) Lipase (73-393) U/L Urine Color Urine Appearance Urine pH (5.0-8.0) Ur Specific [place] (1.001-1.035) Urine Protein (NEGATIVE) mg/dL Urine Glucose (UA) (NEGATIVE) mg/dL Urine Ketones (NEGATIVE) mg/dL Urine Occult Blood (NEGATIVE) Urine Nitrite (NEGATIVE) Urine Bilirubin (NEGATIVE) Urine Ictotest Urine Urobilinogen (<2.0) EU/dL Ur Leukocyte Esterase (NEGATIVE) Urine RBC (0-2/HPF) Urine WBC (0-5/HPF) Ur Epithelial Cells (NONE-FEW) Amorphous Sediment (NEGATIVE) Urine Bacteria (NEGATIVE) Fine Granular Casts (NEGATIVE) Urine HCG, Qual (NEGATIVE) Result Diagrams: 02/05/20 05:33 02/05/20 05:33 Sepsis Event Note - Evaluation Sepsis Screening Result: No Definite Risk - Focused Exam Vital Signs: Vital Signs Temp Pulse Resp BP Pulse Ox 02/05/20 04:49 98.6 F 85 16 114/66 94 L 02/05/20 01:25 96.5 F L 89 16 140/86 100 02/05/20 01:11 91 17 125/93 H 100 02/05/20 00:59 97.6 F 94 17 115/82 100 02/05/20 00:40 77 19 112/59 L 98 02/05/20 00:20 96.7 F L 107 H 18 118/86 100 02/04/20 23:45 98.6 F 92 18 118/72 97 02/04/20 22:30 88 16 122/82 97 02/04/20 21:10 88 16 126/76 98 Date Exam was Performed: 02/05/20 Time Exam was Performed: 11:04 Problem List Initiated/Reviewed/Updated: Yes Orders Last 24hrs: Active Orders 24 hr Category Date Time Status Admission Status [Patient Status] [ADT] Stat ADT 02/05/20 00:27 Active Ambulate [RC] ASDIRECTED Care 02/05/20 02:33 Active Telemetry Monitoring [Cardiac Monitoring] [RC] . Care 02/05/20 01:12 Active DIRECTED Vital Signs [RC] Q4H Care 02/05/20 02:33 Active NPO [Nothing Per Oral Diet] [DIET] Diet 02/05/20 Breakfast Active CULTURE URINE [RM] Stat Lab 02/04/20 22:20 Received Ciprofloxacin in D5W [Cipro in D5W 400 MG/200 ML] 400 Med 02/05/20 04:00 Active mg Premix Bag 1 bag IV Q12H Ondansetron [Zofran] Med 02/05/20 02:41 Active 4 mg IVPUSH Q4H PRN Pantoprazole [ProTONIX IV] 40 mg Med 02/05/20 09:00 Active Sodium Chloride 0.9% [Normal Saline] 10 ml IV DAILY Sodium Chloride 0.9% [Normal Saline] 1,000 ml Med 02/05/20 02:45 Active IV ASDIRECTED metroNIDAZOLE/Normal Saline [Flagyl 500 MG in NS 100 ML Med 02/05/20 08:00 Active ] 500 mg Premix Bag 1 bag IV Q8H Blood Culture x2 Reflex Set [OM.PC] Stat Oth 02/04/20 23:59 Ordered Medication Orders Sodium Chloride (Normal Saline) 1,000 mls @ 125 mls/hr IV ASDIRECTED [facility] Last Admin: 02/05/20 03:02 Dose: 125 mls/hr Metronidazole 500 mg/ Premix 100 mls @ 100 mls/hr IV Q8H [facility] Last Admin: 02/05/20 08:33 Dose: 100 mls/hr Pantoprazole Sodium 40 mg/ (Sodium Chloride) 10 mls @ 300 mls/hr IV DAILY [facility] Last Admin: 02/05/20 08:33 Dose: 300 mls/hr Ciprofloxacin/Dextrose 400 mg/ (Premix) 200 mls @ 200 mls/hr IV Q12H [facility] Last Admin: 02/05/20 04:55 Dose: 200 mls/hr Ondansetron HCl (Zofran) 4 mg IVPUSH Q4H PRN PRN Reason: Nausea/Vomiting Assessment/Plan Comment:: Assessment and Plan: 1. Sepsis secondary to enteritis: - Admit to med/surg. Patient already received 3 L IV NS bolus. Continue IV NS maintenance fluids at 125 cc/hr. Keep patient NPO for now and will advance to [facility] when she has an appetite. Patient on IV ciprofloxacin and IV flagyl. CT abdomen showed thick-walled, edematous small bowel segments consistent with enteritis. Blood cultures pending. Lactate level was 3.0 on admission and repeat lactate is 1.2. Patient reports pain has improved significantly since yesterday. Will also send stool cultures and C.diff testing as patient reported diarrhea yesterday. 2. Leukocytosis secondary to #1, downtrending. 3. FREIDA, resolved. 4. UTI: - UA on admission showed 3+ bacteria but was nitrite negative and leukocyte esterase negative with moderate epithelial cells. Will repeat UA today. Patient already on IV ciprofloxacin. 5. Past medical history of HTN, hyperlipidemia, recurrent UTI and adenomyosis. 6. DVT prophylaxis: SCD's.
[2020-02-05] MEDS ORDERED: Ciprofloxacin in D5W 200 ML ONE ×2 (16:56→16:57)
[2020-02-06] MEDS: metroNIDAZOLE/Normal Saline 500 MG in Premix Bag 1 BAG IV SCH ×2 (01:05→08:35)
[2020-02-06] MEDS: Sodium Chloride 0.9% 1,000 ML IV SCH ×2 (01:07→11:21)
[2020-02-06] MEDS: Ciprofloxacin in D5W 400 MG in Premix Bag 1 BAG IV SCH ×2 (04:45)
[2020-02-06 06:09] LABS: BLOOD UREA NITROGEN,BUN 9 mg/dL (7.0-18.0); CARBON DIOXIDE,CO2 25.1 mmol/L (21.0-32.0); CHLORIDE,CL 107 mmol/L (98-107); GLUCOSE RANDOM 112 mg/dL (74-106); POTASSIUM,K 3.6 mmol/L (3.5-5.1); SODIUM,NA 140 mmol/L (136-145)
[2020-02-06] MEDS: Pantoprazole 40 MG in Sodium Chloride 0.9% 10 ML IV SCH (08:34)
--- NOTE | 2020-02-06 11:55 | PCM.DCSUM1 ---
Discharge Summary - Hospital Course Free Text/Narrative:: 29-year-old female admitted for clostridium difficile colitis. She has a PMH of HTN, hyperlipidemia, recurrent UTI and adenomyosis. CT abdomen showed thick- walled, edematous small bowel segments consistent with enteritis. Patient was initially started on IV fluids, made NPO, IV ciprofloxacin and IV flagyl and when stool came back positive for c. difficile she was started on PO vancomycin. Blood cultures negative. Lactate level was 3.0 on admission and normalized after fluid bolus. Leukocytosis resolved by day of discharge. On day of discharge, patient reported significant improvement in her abdominal pain and was tolerating soft diet. She was discharged in stable condition on 10 days of PO vancomycin and advised to follow-up with her PCP. - Discharge Data Discharge Date: 02/06/20 Discharge Disposition: Home, Self-Care 01 Condition: Stable - Referral to Home Health Primary Care Physician: PCP None - Patient Instructions Diet: Usual Diet as Tolerated Activity: As Tolerated Notify Provider of: Fever, Increased Pain, Swelling and Redness, Drainage, Nausea and/or Vomiting - Discharge Plan *PRESCRIPTION DRUG MONITORING PROGRAM REVIEWED*: Not Applicable *COPY OF PRESCRIPTION DRUG MONITORING REPORT IN PATIENT CAROL: Not Applicable Prescriptions/Med Rec: Vancomycin 125 mg PO QID 10 Days #39 cap Home Medications: Home Meds Diclofenac Sodium 50 mg PO TID PRN 12/12/19 [History] L.acidoph,Paracasei, B.lactis [Probiotic] 1 cap PO DAILY 12/12/19 [History] Lisinopril/Hydrochlorothiazide [Lisinopril-Hctz 20-25 mg Tab] 1 tab PO DAILY [History] atorvaSTATin [Lipitor] 10 mg PO BEDTIME 12/12/19 [History] Hydrocodone/Acetaminophen [[place] 5-325 Tablet] 1 each PO Q6H PRN #15 tablet 03/03 [Rx] medroxyPROGESTERone [Provera] 10 mg PO DAILY 02/05/20 [History] Vancomycin 125 mg PO QID 10 Days #39 cap 02/06/20 [Rx] Oxygen Therapy Mode: Room Air Patient Handouts: Vancomycin capsules - Discharge Summary/Plan Comment DC Time >30 min.: No - Patient Data Vitals - Most Recent: Last Vital Signs Temp 98.2 F 02/06/20 08:00 Pulse 83 02/06/20 08:00 Resp 18 02/06/20 08:00 BP 134/82 02/06/20 08:00 Pulse Ox 98 02/06/20 08:00 Weight - Most Recent: 232 lb I&O - Last 24 hours: Intake & Output 02/05/20 02/06/20 02/06/20 22:59 06:59 14:59 Intake Total 2329 Output Total 900 Balance 1429 Lab Results - Last 24 hrs: Laboratory Results - last 24 hr 02/06/20 02/06/20 Range/Units 05:40 05:40 WBC 9.54 (4.0-11.0) K/uL RBC 3.47 L (4.30-5.90) M/uL Hgb 8.9 L (12.0-16.0) g/dL Hct 28.6 L (36.0-46.0) % MCV 82.4 (80.0-98.0) fL MCH 25.6 L (27.0-32.0) pg MCHC 31.1 (31.0-37.0) g/dL RDW Std Deviation 43.2 (28.0-62.0) fl RDW Coeff of Ravi 14 (11.0-15.0) % Plt Count 334 (150-400) K/uL MPV 9.80 (7.40-12.00) fL Neut % (Auto) 70.2 (48.0-80.0) % Lymph % (Auto) 24.2 (16.0-40.0) % [place] % (Auto) 4.9 (0.0-15.0) % Eos % (Auto) 0.5 (0.0-7.0) % Baso % (Auto) 0.2 (0.0-1.5) % Neut # (Auto) 6.7 H (1.4-5.7) K/uL Lymph # (Auto) 2.3 (0.6-2.4) K/uL [place] # (Auto) 0.5 (0.0-0.8) K/uL Eos # (Auto) 0.1 (0.0-0.7) K/uL Baso # (Auto) 0.0 (0.0-0.1) K/uL Nucleated RBC % 0.0 /100WBC Nucleated RBCs # 0 K/uL Sodium 140 (136-145) mmol/L Potassium 3.6 (3.5-5.1) mmol/L Chloride 107 (98-107) mmol/L Carbon Dioxide 25.1 (21.0-32.0) mmol/L BUN 9 (7.0-18.0) mg/dL Creatinine 0.8 (0.6-1.0) mg/dL Est Cr Clr Drug Dosing 99.08 mL/min Estimated GFR (MDRD) > 60.0 ml/min Glucose 112 H (74-106) mg/dL Calcium 7.8 L (8.5-10.1) mg/dL Total Bilirubin 0.5 (0.2-1.0) mg/dL AST 9 L (15-37) IU/L ALT 16 (14-63) IU/L Alkaline Phosphatase 40 L (46-116) U/L Total Protein 5.4 L (6.4-8.2) g/dL Albumin 2.6 L (3.4-5.0) g/dL Globulin 2.8 (2.6-4.0) g/dL Albumin/Globulin Ratio 0.9 (0.9-1.6) FAUZIA Results - Last 24 hrs: Microbiology 02/04/20 22:20 Urine Culture - Final Urine, Clean Catch MIXED RONI >100,000 CFU/ML 02/04/20 00:23 Aerobic Blood Culture - Preliminary Blood - Venous - Lab Draw NO GROWTH AFTER 1 DAY Anaerobic Blood Culture - Preliminary NO GROWTH AFTER 1 DAY 02/04/20 00:23 Aerobic Blood Culture - Preliminary Blood - Venous NO GROWTH AFTER 1 DAY Anaerobic Blood Culture - Preliminary NO GROWTH AFTER 1 DAY 02/05/20 21:15 C. difficile Antigen & Toxins A,B - Final Stool / Feces Med Orders - Current: Current Medications Sodium Chloride (Normal Saline) 1,000 mls @ 125 mls/hr IV ASDIRECTED [facility] Last Admin: 02/06/20 11:21 Dose: 125 mls/hr Metronidazole 500 mg/ Premix 100 mls @ 100 mls/hr IV Q8H [facility] Last Admin: 02/06/20 08:35 Dose: 100 mls/hr Pantoprazole Sodium 40 mg/ (Sodium Chloride) 10 mls @ 300 mls/hr IV DAILY [facility] Last Admin: 02/06/20 08:34 Dose: 300 mls/hr Ciprofloxacin/Dextrose 400 mg/ (Premix) 200 mls @ 200 mls/hr IV Q12H [facility] Last Admin: 02/06/20 04:45 Dose: 200 mls/hr Ondansetron HCl (Zofran) 4 mg IVPUSH Q4H PRN PRN Reason: Nausea/Vomiting Vancomycin HCl (Vancomycin) 125 mg PO QID [facility] Last Admin: 02/06/20 11:21 Dose: 125 mg Discontinued Medications Sodium Chloride (Normal Saline) 1,000 mls @ 999 mls/hr IV STAT ONE Stop: 02/04/20 22:33 Last Admin: 02/04/20 21:46 Dose: 999 mls/hr Metronidazole 500 mg/ Premix 100 mls @ 100 mls/hr IV ONETIME ONE Stop: 02/05/20 00:49 Last Admin: 02/05/20 00:09 Dose: 100 mls/hr Vancomycin HCl 1.5 gm/ Premix 300 mls @ 300 mls/hr IV ONETIME ONE Stop: 02/04/20 23:52 Last Admin: 02/05/20 00:18 Dose: 300 mls/hr Sodium Chloride (Normal Saline) 1,000 mls @ 1,000 mls/hr IV .Bolus ONE Stop: 02/05/20 00:57 Last Admin: 02/05/20 00:22 Dose: 1,000 mls/hr Sodium Chloride (Normal Saline) 1,000 mls @ 999 mls/hr IV .Bolus ONE Stop: 02/05/20 01:56 Last Admin: 02/05/20 00:57 Dose: 999 mls/hr Ciprofloxacin/Dextrose (Cipro In D5w 400 Mg/200 Ml) Confirm Administered Dose 200 mls @ as directed .ROUTE .STK-MED ONE Stop: 02/05/20 16:57 Last Admin: 02/05/20 17:43 Dose: Not Given Ciprofloxacin/Dextrose (Cipro In D5w 400 Mg/200 Ml) Confirm Administered Dose 200 mls @ as directed .ROUTE .STK-MED ONE Stop: 02/05/20 16:58 Last Admin: 02/05/20 17:43 Dose: Not Given Iopamidol (Isovue Multipack-370 (76%)) 100 ml IVPUSH ONETIME STA Stop: 02/04/20 22:59 Last Admin: 02/04/20 23:07 Dose: 100 ml Ondansetron HCl (Zofran) 4 mg IVPUSH ONETIME ONE Stop: 02/04/20 21:34 Last Admin: 02/04/20 21:46 Dose: 4 mg Ondansetron HCl (Zofran) 4 mg IVPUSH ONETIME ONE Stop: 02/04/20 23:59 Last Admin: 02/05/20 00:39 Dose: 4 mg
[2020-02-06] MEDS ORDERED: Vancomycin 125 MG Cap PO SCH (12:00)
== END 2020-02-06 15:15 | disposition home or self-care (01) | DRG 872 ==
LOC: MW.ED 20:11 → MW.MS 02-05 00:27
PROVIDERS: ADMIT Student in an Organized Health Care Education/Training Program; ATTEND Student in an Organized Health Care Education/Training Program
DX: A41.9 Sepsis, unspecified organism (principal); N39.0 Urinary tract infection, site not specified; N17.9 Acute kidney failure, unspecified; A04.72 Enterocolitis due to Clostridium difficile, not specified as recurrent; I10 Essential (primary) hypertension; E78.5 Hyperlipidemia, unspecified; E78.00 Pure hypercholesterolemia, unspecified; N80.0 Endometriosis of uterus; Z98.890 Other specified postprocedural states; Z79.899 Other long term (current) drug therapy; Z88.0 Allergy status to penicillin
CPT/HCPCS: 36415; 71045; 71045-26; 74177; 74177-26; 80048; 80053; 81001; 81025; 82040; 83605; 83690; 83735; 84100; 85025; 87040; 87045; 87046; 87086; 87324; 87493; 87899; 96361; 96365; 96375; 99285-25; A9270-GY; C9113; J0744; J2405; J3370; J3490; J7030; J7050; Q9967

== ENCOUNTER 2020-03-12 09:39 | Emergency (ER) | payer OTHER ==
[2020-03-12] MEDS ORDERED: Ondansetron 4 MG/2 ML SDV IVPUSH ONE (10:07)
[2020-03-12] MEDS ORDERED: Sodium Chloride 0.9% 1,000 ML IV ONE (10:07)
--- NOTE | 2020-03-12 10:08 | EDM.PDOC ---
ED HPI GENERAL MEDICAL PROBLEM - General Chief Complaint: Abdominal Pain Stated Complaint: LOWER ABDOMINAL PAIN Time Seen by Provider: 03/12/20 10:08 Source of Information: Reports: Patient History Limitations: Reports: No Limitations - History of Present Illness INITIAL COMMENTS - FREE TEXT/NARRATIVE: HISTORY AND PHYSICAL: History of present illness: Patient is a 30-year-old female presents to the ED with complaint of adenomyosis pain. Patient states she has history of heavy periods and was diagnosed with adenomyosis via hysteroscopy 3 years ago. She states she gets this pain every month with her periods. She reports passing quarter sized clots with her period which is not unusual for her. She is on OCP and takes diclofenac for the pain. She states she has been working with Dr. Milner at [facility] to control her symptoms. She states she called this morning to see what she can do about the pain and she was told to come to the ED. Patient states she does get nausea and vomiting due to the pain, states she hasn't been able to eat in 2 days. She denies fevers or chills. Denies diarrhea. She was admitted 1 month ago for enteritis due to c.diff. Review of systems: As per history of present illness and below otherwise all systems reviewed and negative. Past medical history: As per history of present illness and as reviewed below otherwise noncontributory. Surgical history: As per history of present illness and as reviewed below otherwise noncontributory. Social history: No reported history of drug or alcohol abuse. Family history: As per history of present illness and as reviewed below otherwise noncontributory. Physical exam: General: Patient sitting comfortably in no acute distress and nontoxic appearing HEENT: Atraumatic, normocephalic, pupils reactive, negative for conjunctival pallor or scleral icterus, mucous membranes moist, throat clear, neck supple, nontender, trachea midline. No meningeal signs. Lungs: Clear to auscultation, breath sounds equal bilaterally, chest nontender. Heart: S1S2, regular, negative for clicks, rubs, or overt murmur. Abdomen: Soft, nondistended, mild suprapubic tenderness to palpation. Negative for masses or hepatosplenomegaly. Negative for costovertebral tenderness. No rigidity, rebound, guarding. Pelvis: Stable nontender. Genitourinary: Deferred. Rectal: Deferred. Extremities: Atraumatic, negative for cords or calf pain. Neurovascular unremarkable. Neuro: Awake, alert, oriented. Cranial nerves II through XII unremarkable. Cerebellum unremarkable. Motor and sensory unremarkable throughout. Exam nonfocal. Notes: Diagnostics: CBC, CMP, UA, urine hcg Therapeutics: 1L NS IV 4mg Zofran IV 30mg Toradol IB Prescriptions: tramadol zofran Impression: abdominal pain, hx of adenomyosis Plan: Heat or ice as tolerated and alternate tylenol and motrin as needed. You may take tramadol as needed for severe pain. Follow up with traveling auditor Return to ED as needed as discussed Definitive disposition and diagnosis as appropriate pending reevaluation and review of above. Abdomen Pain Score (Numeric/FACES): 5 - Related Data Allergies Allergy/AdvReac Type Severity Reaction Status Date / Time Penicillins Allergy Swelling Verified 02/05/20 03:03 Home Meds: Home Meds Diclofenac Sodium 50 mg PO TID PRN 12/12/19 [History] Lisinopril/Hydrochlorothiazide [Lisinopril-Hctz 20-25 mg Tab] 1 tab PO DAILY [History] atorvaSTATin [Lipitor] 10 mg PO DAILY 12/12/19 [History] Malathion [Ovide] 59 ml TP ONETIME #1 lotion 03/12/20 [Rx] Ondansetron [Zofran ODT] 4 mg PO Q6H PRN #10 tab.dis 03/12/20 [Rx] norgestimate-ethinyl estradioL [Tri-Sprintec] 1 each PO DAILY 03/12/20 [History] traMADol [Ultram] 50 mg PO Q6H PRN #12 tab 03/12/20 [Rx] Past Medical History Cardiovascular History: Reports: High Cholesterol, Hypertension Gastrointestinal History: Reports: Other (See Below) Other Gastrointestinal History: occasional heartburn Genitourinary History: Reports: UTI, Recurrent Other Genitourinary History: takes daily antibiotic for bladder infections [employer]CIAL History: Reports: Endometriosis, Fibroids Musculoskeletal History: Reports: Fracture Other Musculoskeletal History: hx of fx fingers left hand Neurological History: Reports: Migraines, Other (See Below) Other Neuro History: less migraines recently- not one for 6 months, hx of motion sickness Endocrine/Metabolic History: Reports: Other (See Below) Other Endocrine/Metabolic History: hx of G[place] Dermatologic History: Reports: Other (See Below) Other Dermatologic History: very dry skin - Infectious Disease History Infectious Disease History: Reports: None - Past Surgical History Head Surgeries/Procedures: Reports: None HEENT Surgical History: Reports: Oral Surgery Other HEENT Surgeries/Procedures: wisdom teeth removed Social & Family History - Family History Family Medical History: Noncontributory - Caffeine Use Caffeine Use: Reports: None ED ROS GENERAL - Review of Systems Review Of Systems: Comprehensive ROS is negative, except as noted in HPI. ED EXAM, RENAL/ - Physical Exam Exam: See Below (see dictation) Course - Vital Signs Last Recorded V/S: Last Vital Signs Temp 96.8 F L 03/12/20 10:01 Pulse 103 H 03/12/20 10:01 Resp 20 03/12/20 10:01 BP 130/98 H 03/12/20 10:01 Pulse Ox 100 03/12/20 10:01 - Orders/Labs/Meds Labs: Laboratory Tests 03/12/20 03/12/20 03/12/20 Range/Units 10:05 10:05 10:05 WBC 16.93 H (4.0-11.0) K/uL RBC 4.33 (4.30-5.90) M/uL Hgb 10.8 L (12.0-16.0) g/dL Hct 34.6 L (36.0-46.0) % MCV 79.9 L (80.0-98.0) fL MCH 24.9 L (27.0-32.0) pg MCHC 31.2 (31.0-37.0) g/dL RDW Std Deviation 40.7 (28.0-62.0) fl RDW Coeff of Ravi 14 (11.0-15.0) % Plt Count 405 H (150-400) K/uL MPV 10.30 (7.40-12.00) fL Neut % (Auto) 84.6 H (48.0-80.0) % Lymph % (Auto) 9.0 L (16.0-40.0) % [place] % (Auto) 6.3 (0.0-15.0) % Eos % (Auto) 0.0 (0.0-7.0) % Baso % (Auto) 0.1 (0.0-1.5) % Neut # (Auto) 14.3 H (1.4-5.7) K/uL Lymph # (Auto) 1.5 (0.6-2.4) K/uL [place] # (Auto) 1.1 H (0.0-0.8) K/uL Eos # (Auto) 0.0 (0.0-0.7) K/uL Baso # (Auto) 0.0 (0.0-0.1) K/uL Nucleated RBC % 0.0 /100WBC Nucleated RBCs # 0 K/uL Sodium (136-145) mmol/L Potassium (3.5-5.1) mmol/L Chloride (98-107) mmol/L Carbon Dioxide (21.0-32.0) mmol/L BUN (7.0-18.0) mg/dL Creatinine (0.6-1.0) mg/dL Est Cr Clr Drug Dosing mL/min Estimated GFR (MDRD) ml/min Glucose (74-106) mg/dL Calcium (8.5-10.1) mg/dL Total Bilirubin (0.2-1.0) mg/dL AST (15-37) IU/L ALT (14-63) IU/L Alkaline Phosphatase (46-116) U/L Total Protein (6.4-8.2) g/dL Albumin (3.4-5.0) g/dL Globulin (2.6-4.0) g/dL Albumin/Globulin Ratio (0.9-1.6) Urine Color YELLOW Urine Appearance SLT CLOUDY Urine pH 6.0 (5.0-8.0) Ur Specific [place] >= 1.030 (1.001-1.035) Urine Protein 30 H (NEGATIVE) mg/dL Urine Glucose (UA) NEGATIVE (NEGATIVE) mg/dL Urine Ketones 15 H (NEGATIVE) mg/dL Urine Occult Blood MODERATE H (NEGATIVE) Urine Nitrite NEGATIVE (NEGATIVE) Urine Bilirubin SMALL H (NEGATIVE) Urine Ictotest NEGATIVE Urine Urobilinogen 0.2 (<2.0) EU/dL Ur Leukocyte Esterase NEGATIVE (NEGATIVE) Urine RBC 10-15 (0-2/HPF) Urine WBC 0-2 (0-5/HPF) Ur Epithelial Cells FEW (NONE-FEW) Amorphous Sediment LIGHT (NEGATIVE) Urine Bacteria FEW (NEGATIVE) Urinalysis Comment Urine HCG, Qual NEGATIVE (NEGATIVE) 03/12/20 Range/Units 10:05 WBC (4.0-11.0) K/uL RBC (4.30-5.90) M/uL Hgb (12.0-16.0) g/dL Hct (36.0-46.0) % MCV (80.0-98.0) fL MCH (27.0-32.0) pg MCHC (31.0-37.0) g/dL RDW Std Deviation (28.0-62.0) fl RDW Coeff of Ravi (11.0-15.0) % Plt Count (150-400) K/uL MPV (7.40-12.00) fL Neut % (Auto) (48.0-80.0) % Lymph % (Auto) (16.0-40.0) % [place] % (Auto) (0.0-15.0) % Eos % (Auto) (0.0-7.0) % Baso % (Auto) (0.0-1.5) % Neut # (Auto) (1.4-5.7) K/uL Lymph # (Auto) (0.6-2.4) K/uL [place] # (Auto) (0.0-0.8) K/uL Eos # (Auto) (0.0-0.7) K/uL Baso # (Auto) (0.0-0.1) K/uL Nucleated RBC % /100WBC Nucleated RBCs # K/uL Sodium 137 (136-145) mmol/L Potassium 3.5 (3.5-5.1) mmol/L Chloride 102 (98-107) mmol/L Carbon Dioxide 24.1 (21.0-32.0) mmol/L BUN 12 (7.0-18.0) mg/dL Creatinine 0.9 (0.6-1.0) mg/dL Est Cr Clr Drug Dosing 87.27 mL/min Estimated GFR (MDRD) > 60.0 ml/min Glucose 104 (74-106) mg/dL Calcium 9.0 (8.5-10.1) mg/dL Total Bilirubin 1.1 H (0.2-1.0) mg/dL AST 13 L (15-37) IU/L ALT 16 (14-63) IU/L Alkaline Phosphatase 70 (46-116) U/L Total Protein 7.6 (6.4-8.2) g/dL Albumin 3.6 (3.4-5.0) g/dL Globulin 4.0 (2.6-4.0) g/dL Albumin/Globulin Ratio 0.9 (0.9-1.6) Urine Color Urine Appearance Urine pH (5.0-8.0) Ur Specific [place] (1.001-1.035) Urine Protein (NEGATIVE) mg/dL Urine Glucose (UA) (NEGATIVE) mg/dL Urine Ketones (NEGATIVE) mg/dL Urine Occult Blood (NEGATIVE) Urine Nitrite (NEGATIVE) Urine Bilirubin (NEGATIVE) Urine Ictotest Urine Urobilinogen (<2.0) EU/dL Ur Leukocyte Esterase (NEGATIVE) Urine RBC (0-2/HPF) Urine WBC (0-5/HPF) Ur Epithelial Cells (NONE-FEW) Amorphous Sediment (NEGATIVE) Urine Bacteria (NEGATIVE) Urinalysis Comment Urine HCG, Qual (NEGATIVE) Meds: Medications Discontinued Medications Generic Name Dose Route Start Last Admin Trade Name Freq PRN Reason Stop Dose Admin Sodium Chloride 1,000 mls @ 999 mls/hr 03/12/20 10:07 03/12/20 10:28 Normal Saline IV 03/12/20 11:07 999 mls/hr STAT ONE Administration Iopamidol 100 ml 03/12/20 11:36 03/12/20 11:36 Isovue Multipack-370 (76%) IVPUSH 03/12/20 11:37 100 ml ONETIME STA Administration Ketorolac Tromethamine 60 mg 03/12/20 10:30 03/12/20 10:37 Toradol IM 03/12/20 10:31 Not Given ONETIME ONE Ketorolac Tromethamine 30 mg 03/12/20 10:39 03/12/20 10:45 Toradol IVPUSH 03/12/20 10:40 30 mg ONETIME ONE Administration Ondansetron HCl 4 mg 03/12/20 10:07 03/12/20 10:28 Zofran IVPUSH 03/12/20 10:08 4 mg ONETIME ONE Administration Departure - Departure Time of Disposition: 10:17 Disposition: Home, Self-Care 01 Condition: Good Clinical Impression: Abdominal pain, Adenomyosis Clinical Impression: (Ruled Out): Pediculosis pubis - Discharge Information Prescriptions: Malathion [Ovide] 59 ml TP ONETIME #1 lotion Referrals: Jolie Milner MD [Primary Care Provider] - Forms: ED Department Discharge Additional Instructions: The following information is given to patients seen in the emergency department who are being discharged to home. This information is to outline your options for follow-up care. We provide all patients seen in our emergency department with a follow-up referral. The need for follow-up, as well as the timing and circumstances, are variable depending upon the specifics of your emergency department visit. If you don't have a primary care physician on staff, we will provide you with a referral. We always advise you to contact your personal physician following an emergency department visit to inform them of the circumstance of the visit and for follow-up with them and/or the need for any referrals to a consulting specialist. The emergency department will also refer you to a specialist when appropriate. This referral assures that you have the opportunity for follow-up care with a specialist. All of these measure are taken in an effort to provide you with optimal care, which includes your follow-up. Under all circumstances we always encourage you to contact your private physician who remains a resource for coordinating your care. When calling for follow-up care, please make the office aware that this follow-up is from your recent emergency room visit. If for any reason you are refused follow-up, please contact the [facility] at and asked to speak to the emergency department charge nurse. [facility] [address] [place] [address] [id number] [address] [address] Heat or ice as tolerated and alternate tylenol and motrin as needed. You may take tramadol as needed for severe pain. Follow up with traveling auditor Return to ED as needed as discussed Sepsis Event Note - Evaluation Sepsis Screening Result: No Definite Risk - Focused Exam Vital Signs: Vital Signs Temp Pulse Resp BP Pulse Ox 03/12/20 10:01 96.8 F L 103 H 20 130/98 H 100 Date Exam was Performed: 03/12/20 Time Exam was Performed: 12:16
[2020-03-12 10:33] LABS: BLOOD UREA NITROGEN,BUN 12 mg/dL (7.0-18.0); CARBON DIOXIDE,CO2 24.1 mmol/L (21.0-32.0); CHLORIDE,CL 102 mmol/L (98-107); GLUCOSE RANDOM 104 mg/dL (74-106); POTASSIUM,K 3.5 mmol/L (3.5-5.1); SODIUM,NA 137 mmol/L (136-145)
[2020-03-12] MEDS: Ketorolac 60 MG/2 ML SDV IM ONE ×2 (10:36→10:37)
[2020-03-12] MEDS ORDERED: Ketorolac 30 MG/ML SDV IVPUSH ONE (10:39)
[2020-03-12] MEDS ORDERED: Iopamidol 755 MG/ML 500 ML Multipack Bottle IVPUSH STA (11:36)
--- NOTE | 2020-03-12 12:06 | CT ---
CT abdomen and pelvis Technique: Multiple axial sections were obtained from above the dome of the diaphragm inferiorly through the pubic symphysis. Intravenous contrast was utilized. No oral contrast has been given. Comparison: Prior CT abdomen and pelvis exam of 02/04/20. Findings: Previous bowel wall thickening within small bowel has resolved. Visualized lung bases show nothing acute. Liver contains no focal parenchymal abnormality. Spleen appears within normal limits. Adrenal glands show no nodule. Pancreas is within normal limits. Kidneys show symmetric contrast enhancement without hydronephrosis or mass. Gallbladder contains no calcified gallstones. Aorta shows no aneurysm. Mildly prominent retroperitoneal lymph nodes are noted. These are not more prominent than usually seen. Largest lymph node measures about 1.4 cm. These findings are felt to be fairly stable from prior exam. Uterus remains enlarged which is stable in appearance from previous exam. Small amount of free fluid is noted within the dependent portion of the pelvis. No inflammatory change is identified. Bone window settings shows no acute osseous finding. Minimal fat-containing umbilical hernia is noted. Impression: 1. Previous small bowel wall thickening is no longer seen. 2. Small amount of fluid within the pelvis most likely physiologic. 3. Enlarged uterus most likely representing fibroid change which remains is a stable finding from prior exam. 4. Prominent retroperitoneal lymph nodes which remains similar to previous exam. Findings may relate to previous enteritis and are enlarged on an inflammatory basis. Recommend contrast enhanced CT study in 6 months to confirm stability or resolution and rule out any worsening. This follow-up CT study would occur in September,. Diagnostic code #3 This report was dictated in MDT
== END 2020-03-12 12:36 | disposition home or self-care (01) ==
LOC: MW.ED 09:39
DX: N80.0 Endometriosis of uterus (principal); E78.00 Pure hypercholesterolemia, unspecified; I10 Essential (primary) hypertension; G43.909 Migraine, unspecified, not intractable, without status migrainosus; Z88.0 Allergy status to penicillin; Z79.899 Other long term (current) drug therapy
CPT/HCPCS: 74177; 80053; 81001; 81025; 85025; 96361; 96374; 96375; 99284; J1885; J2405; J7030; Q9967; 99283